=== PATIENT | female | born 1990 | race Caucasian/White ===

== ENCOUNTER 2017-06-25 16:12 | Emergency (ER) | payer OTHER ==
[~2017-06-25] VITALS: Ht 152.4 cm; Wt 57.2 kg
[~2017-06-25 16:12] MED LIST: CIPRO500 MG PO; KETO10TA2 PO; NAPR500T14 PO; PEPCID40 MG PO; PYRIDIUM200 MG PO; ZOFRAN4 MG PO; [UNRECOGNIZED DRUG - OTHER]
== END 2017-06-25 20:56 | disposition home or self-care (01) ==
LOC: ER 16:12
DX: M62.838 Other muscle spasm (principal)

== ENCOUNTER 2017-11-13 02:19 | Inpatient (IN) | payer OTHER ==
[~2017-11-13] VITALS: Ht 152.4 cm; Wt 3.6 kg
[2017-11-13] MEDS ORDERED: SYNTHROID50 MCG PO (04:26)
[2017-11-13] MEDS ORDERED: TYLENOL EXTRA500 MG PO (04:27)
[2017-11-13] MEDS ORDERED: CEPHALEXIN500 M1 PO (04:30)
[2017-11-13] MEDS ORDERED: PRENATAL TABLE1 EAC1 PO (04:31)
[2017-11-13] MEDS ORDERED: FERROUS SULFAT325 MG PO (04:32)
== END 2017-11-16 19:34 | DRG 766 ==
LOC: LDR 02:19 → OB/GYN 02:19
PROVIDERS: Obstetrics & Gynecology
PROC: 4A1HXCZ Monitoring of Products of Conception, Cardiac Rate, External Approach (ICD-10-PCS; 2017-11-13)
PROC: 4A033R1 Measurement of Arterial Saturation, Peripheral, Percutaneous Approach (ICD-10-PCS; 2017-11-13)
PROC: 10D00Z1 Extraction of Products of Conception, Low, Open Approach (ICD-10-PCS; principal; 2017-11-13 17:00)
DX: O62.0 Primary inadequate contractions (principal); Z3A.40 40 weeks gestation of pregnancy; Z37.0 Single live birth